=== PATIENT | male | born 1965 | race Caucasian/White ===

== ENCOUNTER 2022-10-03 15:22 | Inpatient (IN) ==
[2022-10-03] MEDS ORDERED: KETAMINE HCL ONE (15:23)
[2022-10-03] MEDS ORDERED: ULTANE GAS IN ONE (15:23)
[2022-10-03] MEDS ORDERED: XYLOCAINE 2 % (PLAIN) ONE (15:23)
[2022-10-03 16:59] LABS: BASOPHILS # (AUTO) 0.1 X10^3/uL (0.0-0.1); BASOPHILS % (AUTO) 0.6 % (0.2-1.0); EOSINOPHILS # (AUTO) 0.4 x10^3/uL (0.0-0.2); HEMATOCRIT 40.9 % (42.0-54.0); LYMPHOCYTES # (AUTO) 3.2 X10^3/uL (1.3-2.9); LYMPHOCYTES % (AUTO) 37.6 % (21.0-51.0); MEAN CORPUSCULAR HEMOGLOBIN 32.9 pg (27.0-34.0); MEAN CORPUSCULAR HGB CONC 34.2 g/dL (33.0-35.0); MEAN CORPUSCULAR VOLUME 96.3 fL (80.0-100.0); MEAN PLATELET VOLUME 7.3 fL (7.4-11.0); MONOCYTES # (AUTO) 0.8 x10^3/uL (0.3-0.8); MONOCYTES % (AUTO) 9.5 % (0.0-13.0); NEUTROPHILS % (AUTO) 47.3 % (42.0-75.0); PLATELET COUNT 207 X10^3/uL (150.0-450.0); RED BLOOD COUNT 4.25 X10^6/uL (4.7-6.0); RED CELL DISTRIBUTION WIDTH 13.3 % (11.6-16.5); WHITE BLOOD COUNT 8.4 X10^3/uL (3.6-10.0)
[2022-10-03 17:10] LABS: ALANINE AMINOTRANSFERASE 26 Units/L (12-78); ALBUMIN 3.7 g/dL (3.4-5.0); ALKALINE PHOSPHATASE 112 Units/L (46-116); ASPARTATE AMINO TRANSFERASE 23 Units/L (15-37); BLOOD UREA NITROGEN 14 mg/dL (7-18); CALCIUM 8.7 mg/dL (8.5-10.1); CARBON DIOXIDE 25.9 mmol/L (21-32); CHLORIDE 99 mmol/L (98-107); CREATININE 1.34 mg/dL (0.70-1.30); GLUCOSE 98 mg/dL (65-99); POTASSIUM 3.9 mmol/L (3.5-5.1); SODIUM 137 mmol/L (136-145); TOTAL PROTEIN 7.9 g/dL (6.4-8.2); eGFR NON BLACK RACES 58 (>60)
[2022-10-03] MEDS ORDERED: OMNIPAQUE 350 mg/mL 50 mL BTL 50 ML ONE (17:17)
[2022-10-03] MEDS ORDERED: OMNIPAQUE 350 mg/mL 100 mL BTL 100 ML ONE (17:17)
[2022-10-03] MEDS: LR 1,000 ML IV 1,000 ML IV SCH (18:17)
[2022-10-03 18:22] VITALS: BMI 34.4
[2022-10-04] MEDS: LR 1,000 ML IV 1,000 ML IV SCH ×2 (05:04→21:33)
[2022-10-04] MEDS: PERCOCET TAB 5/325 MG PO PRN (05:57)
--- NOTE | 2022-10-04 07:59 | CT ---
HISTORYCritical ischemia right lower extremitySTUDYCTA AORTA WITH RUNOFFCOMPARISONNoneTECHNIQUECTA of the abdomen and pelvis with bilateral lower extremity runoff obtained with IV contrast. 3D MIPS images obtained and reviewed. Dose reduction techniques including Automated Exposure Control (AEC) and adjustment of mA and kV were utilized.FINDINGSGround-glass opacities in the right middle lobe and lingula.No acute osseous abnormality. Multilevel degenerative changes in the visualized spine. No acute soft tissue abnormality in either lower extremity.No evidence of aortic aneurysm or dissection. The celiac artery, SMA, bilateral renal arteries, and BROOKE appear patent.The right common and internal iliac arteries appear widely patent. Occlusion of the right external iliac artery. Reconstitution of the right common femoral artery with patency of the common femoral, superficial femoral, and deep femoral arteries with multifocal atherosclerotic disease. The right popliteal artery is patent. The right posterior tibial and peroneal arteries are patent to the right foot with diminutive flow in the proximal right anterior tibial artery and no flow visualized distally.The left common, internal, and external iliac arteries appear widely patent. The left common femoral, superficial femoral, and deep femoral arteries appear widely patent. The left popliteal artery is patent. The left peroneal artery is patent to the foot. The left anterior tibial and posterior tibial arteries are patent proximally with nonvisualization of flow more distally. There is apparent reconstitution of flow at the left posterior tibial artery just above the ankle.The liver, spleen, pancreas, bilateral adrenal glands, and bilateral kidneys demonstrate no acute process. Prior cholecystectomy. Subcentimeter hypoattenuating bilateral renal lesions which are too small to characterize.No evidence of bowel obstruction. The appendix is not visualized and may be surgically absent. Evidence of mesh repair in the midline anterior abdomen.The bladder is unremarkable. No free air or fluid.IMPRESSIONPatent two vessel runoff to the right foot and one-vessel runoff to the left foot.No acute findings in the abdomen or pelvis.Electronically signed by: BELINDA PALACIOS (Oct 04, 2022 07:58:18)
--- NOTE | 2022-10-04 09:08 | DR.H&P ---
H&P History & Physical for Day of: H&P Date: 10/03/22 Chief Complaint Chief Complaint: Severe ischemic rest pain right leg. Allergies Allergies Allergy/AdvReac Type Severity Reaction Status Date / Time No Known Allergies Allergy Verified 10/01/22 09:31 History of Present Illness History of Present Illness: 57 year old male, heavy smoker, who presented originally to my office in June of this year complaining of severe rest pain both legs much worse on the right. The patient has a significant past history of chest pain and shortness of breath and was to be evaluated by Cardiology. He has a history of one coronary This has occurred over a protracted time but he has been cleared for operative intervention of the leg as necessary. No ischemia on stress test but EF =28 % but they questioned whether this might be higher The Details of the cardiac consultation will be placed in the chart. He was in today with severe pain of the right leg which is unrelenting. He's admitted for resolution of this problem. Past Medical History Past Medical History: COPD, Coronary Artery Disease and Hypertension Past Surgical History Surgical History: Angioplasty/Stents and Cholecystectomy Family History Family Medical History: Diabetes Mellitus Social History Does patient currently use any type of tobacco product: Yes Have you used tobacco products in the last 12 months: Yes Type of Tobacco Use: Cigarettes Alcohol Use: None Drug Use: None Medications Home Medications: Albuterol ,Xanax ,atorvastin, carvediol,plavix,cyclobenzaprine, lasix, neurotin,insulin, lisinopril,metformin,percocet,protonix, sitagliptin Labs 10/03/22 16:30 10/03/22 16:30 Labs: Laboratory WBC 8.4 X10^3/uL (3.6-10.0) 10/03/22 16:30 RBC 4.25 X10^6/uL (4.7-6.0) L 10/03/22 16:30 Hgb 14.0 g/dL (13.5-18.0) 10/03/22 16:30 Hct 40.9 % (42.0-54.0) L 10/03/22 16:30 MCV 96.3 fL (80.0-100.0) 10/03/22 16:30 MCH 32.9 pg (27.0-34.0) 10/03/22 16:30 MCHC 34.2 g/dL (33.0-35.0) 10/03/22 16:30 RDW 13.3 % (11.6-16.5) 10/03/22 16:30 Plt Count 207 X10^3/uL (150.0-450.0) 10/03/22 16:30 MPV 7.3 fL (7.4-11.0) L 10/03/22 16:30 Neut % (Auto) 47.3 % (42.0-75.0) 10/03/22 16:30 Lymph % (Auto) 37.6 % (21.0-51.0) 10/03/22 16:30 [place] % (Auto) 9.5 % (0.0-13.0) 10/03/22 16:30 Eos % (Auto) 5.0 % (0.9-2.9) H 10/03/22 16:30 Baso % (Auto) 0.6 % (0.2-1.0) 10/03/22 16:30 Neut # (Auto) 4.0 x10^3/uL (2.2-4.8) 10/03/22 16:30 Lymph # (Auto) 3.2 X10^3/uL (1.3-2.9) H 10/03/22 16:30 [place] # (Auto) 0.8 x10^3/uL (0.3-0.8) 10/03/22 16:30 Eos # (Auto) 0.4 x10^3/uL (0.0-0.2) H 10/03/22 16:30 Baso # (Auto) 0.1 X10^3/uL (0.0-0.1) 10/03/22 16:30 Absolute Nucleated RBC 0.1 /100WBC 10/03/22 16:30 Sodium 137 mmol/L (136-145) 10/03/22 16:30 Corrected Sodium TNP 10/03/22 16:30 Potassium 3.9 mmol/L (3.5-5.1) 10/03/22 16:30 Chloride 99 mmol/L (98-107) 10/03/22 16:30 Carbon Dioxide 25.9 mmol/L (21-32) 10/03/22 16:30 BUN 14 mg/dL (7-18) 10/03/22 16:30 Creatinine 1.34 mg/dL (0.70-1.30) H 10/03/22 16:30 Est GFR (MDRD) Af Amer > 60 (>60) 10/03/22 16:30 Est GFR (MDRD) Non-Af 58 (>60) L 10/03/22 16:30 Glucose 98 mg/dL (65-99) 10/03/22 16:30 POC Glucose (mg/dL) 92 mg/dL (65-99) 10/03/22 19:34 Calcium 8.7 mg/dL (8.5-10.1) 10/03/22 16:30 Corrected Calcium TNP 10/03/22 16:30 Total Bilirubin 0.70 mg/dL (0.2-1.0) 10/03/22 16:30 AST 23 Units/L (15-37) 10/03/22 16:30 ALT 26 Units/L (12-78) 10/03/22 16:30 Alkaline Phosphatase 112 Units/L (46-116) 10/03/22 16:30 Total Protein 7.9 g/dL (6.4-8.2) 10/03/22 16:30 Albumin 3.7 g/dL (3.4-5.0) 10/03/22 16:30 Globulin 4.2 g/dL (2.5-4.5) 10/03/22 16:30 Albumin/Globulin Ratio 0.9 Ratio (1.1-2.1) L 10/03/22 16:30 Review of Systems Constitutional: See HPI Eyes: No Symptoms Reported ENT: No Symptoms Reported Respiratory: No Symptoms Reported Cardiovascular: See HPI Gastrointestinal: No Symptoms Reported Genitourinary: No Symptoms Reported Musculoskeletal: See HPI Skin: No Symptoms Reported Neurological: See HPI Physical Exam Vital Signs: Vital Signs Temperature 97.5 F Temperature 97.9 F Pulse Rate [Right Brachial] 68 Pulse Rate [Right Brachial] 91 Respiratory Rate 18 Respiratory Rate 24 Blood Pressure [Right Arm] 95/50 Blood Pressure [Right Arm] 131/64 O2 Sat by Pulse Oximetry 93 Oriented: Normal, Time, Person and Place Eyes: Normal Ear: Normal Nose: Normal Throat: Normal Respiratory: Clear Throughout Cardiovascular: Normal : Normal Auscultation: Bowel Sounds: Normal Palpation: Normal Tenderness: Normal Skin: Normal Musculoskeletal: Normal Psychiatric: Normal Mood Description: Anxious Affect: Normal Speech Pattern: Clear Assessment/Plan (1) Atherosclerosis of [place] arteries of extremities with rest pain, right leg: Narrative Support Text: plan CTA of aorta with peripheral vs surgical intervention . All other medical problems to be treated with his usual home medications. Status: Acute (2) Atherosclerosis of [place] arteries of extremities with rest pain, left leg: Status: Acute (3) Generalized anxiety disorder: Status: None (4) Mixed hyperlipidemia: Status: None (5) Mild tobacco abuse: Status: None (6) Type 2 diabetes mellitus: Status: None (7) Heart disease: Narrative Support Text: see results of stress test Status: None (8) Essential hypertension: Status: None
[2022-10-04] MEDS ORDERED: DIPRIVAN VIAL 40 ML ONE (13:40)
[2022-10-04] MEDS ORDERED: NS 1,000 ML IV 1,000 ML ONE (13:41)
[2022-10-04] MEDS ORDERED: ANCEF VIAL 1 GRAM ONE (13:41)
[2022-10-04] MEDS ORDERED: NS 100 ML IV 100 ML ONE (13:42)
[2022-10-04] MEDS ORDERED: MARCAINE 0.5% ONE (13:56)
[2022-10-04] MEDS ORDERED: HEPARIN SODIUM IN D5W 75,000 UNITS/1,500 ML BAG ONE (13:57)
[2022-10-04] MEDS ORDERED: VERSED ONE (14:01)
[2022-10-04] MEDS ORDERED: FENTANYL VIAL INJ 100 mcg ONE (14:01)
[2022-10-04] MEDS ORDERED: VISIPAQUE 100 ML ONE (14:17)
[2022-10-04] MEDS ORDERED: HEPARIN SODIUM INJ 5000 UNITS ONE (14:20)
--- NOTE | 2022-10-04 22:57 | OR.IMMED ---
IMMEDIATE POST-OP NOTE Immediate Post-Op Note Pre-Op Diagnosis: critical ischemia right leg Post-Op Diagnosis: same Procedure: diagnostic aortogram, diagnostic arteriogram right leg. Failed to cross right external iliac artery occlusion, failed to cross right superficial femoral artery total occlusion via posterior tibial artery approach Description of Procedure: see dictation Surgeon/Admissions Clerk: Karmen Findings: as above Estimated Blood Loss: 50 cc Complications: none Progress Notes: Return to floor, will need right femoral endarterectomy and approach right iliac artery occlusion and right superficial femoral artery occlusion from the open incision, possible femoral femoral artery bypass.
--- NOTE | 2022-10-05 09:27 | NOTE.SOAP ---
Soap Note Note for Day of Date of Exam: 10/05/22 Subjective Data Subjective Data: POD # 1 Unable to revascularize right leg . c/o rest pain right leg Objective Data Temperature: 98.3 F Pulse Rate: 70 Respiratory Rate: 18 Blood Pressure: 131/79 O2 Sat by Pulse Oximetry: 95 Objective Data: Needle sticks to the left groin and right foot are without bleeding. Complaining of rest pain right leg. Does complained of some claustrophobia but I think his main problem is lack of tobacco. Assessment Assessment: Critical ischemia right leg with occluded right external iliac artery and occluded right superficial femoral artery Plan Plan: For now pain control. Will schedule operative intervention on October 07 to include probable right femoral endarterectomy with approach of the right external iliac artery for stenting and approach of the right superficial femoral artery for atherectomy and angioplasty. He may require a femoral femoral bypass if I am unable to open up the right iliac artery. Begin all home meds. Start Nicotine patch. D/C Keven.
[2022-10-05] MEDS ORDERED: NovoLIN R (or HumuLIN R) SC PRN (10:28)
[2022-10-05] MEDS ORDERED: VENTOLIN or PROAIR HFA IN PRN (10:38)
[2022-10-05] MEDS: COREG TAB 12.5 MG PO SCH ×2 (11:21→20:42)
[2022-10-05] MEDS: NEURONTIN CAP 100 MG PO SCH (11:21)
[2022-10-05] MEDS: PLAVIX PO SCH (11:21)
[2022-10-05] MEDS: PROTONIX TAB 40 MG PO SCH (11:21)
[2022-10-05] MEDS: ASPIRIN EC 81 MG PO SCH (11:22)
[2022-10-05] MEDS: LR 1,000 ML IV 1,000 ML IV SCH ×3 (11:22→20:42)
[2022-10-05] MEDS: NICOTINE PATCH TD SCH (11:22)
[2022-10-05] MEDS: ZESTRIL TAB 10 MG PO SCH ×3 (11:22→20:43)
--- NOTE | 2022-10-05 12:28 | DR.OPNOTE ---
OP NOTE Pre-Op Diagnosis: Critical ischemia right leg Post-Op Diagnosis: same Procedure Date Date Of Procedure: 10/04/22 Procedure: PROCEDURE: DIAGNOSTIC AORTOGRAM, DIAGNOSTIC ARTERIOGRAM RIGHT LEG NARRATIVE : The patient was taken to the operative suite and placed in the supine position. The left groin and entire right leg were prepped and draped in sterile fashion. The patient was given intravenous sedation supervised by myself. Time out for the procedure obtained. Ultrasound used to identify the left femoral artery and the skin overlying it infiltrated with 0.5% Marcaine. Ultrasound then used to guide puncture of the left femoral artery and a 0.012 inch guide wire was placed. Incision made over the guide wire at the skin edge with a # 11 knife blade and a micro sheath placed over the guide wire into the left femoral artery The small guidewire exchanged for a 0.035 inch Advantage glide wire and the micro sheath exchanged for a 5 Fr vascular sheath. Patient given 5000 units of intravenous heparin. Omni catheter was placed over the guide wire into the aorta and diagnostic aortogram carried out with the power injector showing diseased , but patent distal aorta with small, < 3.5 cm abdominal aortic aneurysm. Right external iliac artery was occluded at it's takeoff with occluded proximal right common femoral artery and reconstitution of the right superficial femoral artery and profunda artery. Omni catheter was used to attempt to steer the guide wire down the right common iliac artery to the distal right external iliac artery but this was unsuccessful . Omni catheter was exchanged for a [place] catheter and again we failed to get the wire beyond the takeoff of the occluded right external iliac artery at it's takeoff from the right common femoral artery. At this point we elected to try to access this distally from the right posterior tibial artery. Ultrasound used to identify the right posterior tibial artery at the ankle and the skin overlying it infiltrated with 0.5% Marcaine . Right posterior tibial artery punctured using ultrasound guidance and a 0.012 inch guide wire placed . Incision made over the guide wire and a micro sheath placed over this into the artery. Arteriogram confirmed that we were indeed in the right posterior tibial artery. There was three vessel run off of the right leg. The popliteal artery was occluded from just below the knee joint proximally. Over the wire we exchanged the micro sheath for a 7 Italian slim vascular sheath sheath and used a 0.035 inch wire to get beyond the popliteal occlusion. We got the wire into the right superficial femoral artery but there was an occluded stent which we could not get beyond. As above it should be noted that the proximal superficial femoral artery was patent. At this point we will need to do a different approach as there been two failed peripheral intervention attempts to repair this problem. Patient will be taken to the floor and we will plan a right femoral endarterectomy this week and hopefully at that time through the patch we place we can access the occluded right external iliac artery and right superficial artery and stent the iliac artery and perform atherectomy, possible angioplasty, possible stenting of the right superficial femoral artery. If we cannot get away across the occluded iliac artery the patient will require a femoral femoral bypass with an attempt to go through the patch and open up the right superficial femoral artery. This will be a complicated procedure. All wires and devices removed. The 5 Fr sheath in the left groin had a 0.035 inch wire placed. The 5 Fr sheath exchanged for an Angioseal device used to close the puncture of the left femoral artery. The sheath in the right posterior tibial artery was removed after placing a tibial band over the puncture site and inflating it. There was no additional bleeding. Dressing applied to the left groin. The patient taken to same day surgery in good condition. Type of Anesthesia: Local (0.5% Marcaine) Anesthesia Comment: plus MAC Findings: Completely occluded right external iliac artery, completely occluded right common femoral artery, complete occlusion of the mid and distal right superficial femoral artery, three vessel runoff right leg Type of Fluids Used:: Lactated Ringers Total Amount of Fluid Infused:: 400 cc Urine output: 150 cc EBL: 50 cc Complications:: none Needle/Sponge Count:: correct Disposition/Condition: Pt. tolerated procedure without difficulty. Taken to floor in stable condition.
[2022-10-05] MEDS: PERCOCET TAB 5/325 MG PO PRN ×2 (16:28→22:08)
[2022-10-05] MEDS: LIPITOR TAB 40 MG PO SCH (20:42)
[2022-10-05] MEDS: XANAX PO PRN (22:07)
[2022-10-05] MEDS: FLEXERIL TAB 10 MG PO PRN (22:08)
[2022-10-06] MEDS: LR 1,000 ML IV 1,000 ML IV SCH ×5 (03:14→23:56)
[2022-10-06] MEDS: NEURONTIN CAP 100 MG PO SCH (09:20)
[2022-10-06] MEDS: ASPIRIN EC 81 MG PO SCH (09:20)
[2022-10-06] MEDS: PROTONIX TAB 40 MG PO SCH (09:20)
[2022-10-06] MEDS: PLAVIX PO SCH (09:20)
[2022-10-06] MEDS: ZESTRIL TAB 10 MG PO SCH ×2 (09:20→21:28)
[2022-10-06] MEDS: LASIX PO SCH (09:21)
[2022-10-06] MEDS: COREG TAB 12.5 MG PO SCH ×2 (09:21→21:29)
[2022-10-06] MEDS: NICOTINE PATCH TD SCH (09:21)
[2022-10-06] MEDS: XANAX PO PRN (10:05)
[2022-10-06] MEDS: FLEXERIL TAB 10 MG PO PRN (10:06)
[2022-10-06] MEDS: PERCOCET TAB 5/325 MG PO PRN ×2 (10:07→21:30)
--- NOTE | 2022-10-06 19:01 | NOTE.SOAP ---
Soap Note Note for Day of Date of Exam: 10/06/22 Subjective Data Subjective Data: The patient feels better. He has a much better attitude today. Still complaining of significant pain however of the right leg and foot at rest Objective Data Temperature: 97.8 F Pulse Rate: 72 Respiratory Rate: 20 Blood Pressure: 109/62 O2 Sat by Pulse Oximetry: 94 Objective Data: No palpable pulse right groin . Needle sticks left groin and right ankle are healing without bleeding. Will check labs in AM. Assessment Assessment: Critical ischemia right leg. Plan Plan: Two experienced physicians have now been unable to cross the occlusion of the right external iliac artery. In addition, I could not cross the occlusion of the right superficial femoral artery stents. Tomorrow we plan endarterectomy of the completely occluded right common femoral artery with patch placement. Plan is to then try to get a wire up the iliac artery and down the superficial femoral artery to perform stenting of the iliac artery and atherectomy and drug coated balloon angioplasty of the right superficial femoral artery. If I am unsuccessful in opening up the right iliac artery the patient will require a femoral femoral bypass. His leg is at extreme jeopardy for loss. He understands this. He agreed to proceed.
[2022-10-06] MEDS: LIPITOR TAB 40 MG PO SCH (21:29)
[2022-10-07] MEDS: LR 1,000 ML IV 1,000 ML IV SCH ×2 (05:18→15:58)
[2022-10-07 06:03] LABS: BASOPHILS % (AUTO) 0.7 % (0.2-1.0); EOSINOPHILS # (AUTO) 0.2 x10^3/uL (0.0-0.2); EOSINOPHILS % (AUTO) 4.7 % (0.9-2.9); HEMATOCRIT 37.1 % (42.0-54.0); HEMOGLOBIN 12.6 g/dL (13.5-18.0); LYMPHOCYTES # (AUTO) 1.6 X10^3/uL (1.3-2.9); LYMPHOCYTES % (AUTO) 31.5 % (21.0-51.0); MEAN CORPUSCULAR HEMOGLOBIN 32.7 pg (27.0-34.0); MEAN CORPUSCULAR HGB CONC 33.9 g/dL (33.0-35.0); MEAN CORPUSCULAR VOLUME 96.2 fL (80.0-100.0); MEAN PLATELET VOLUME 7.4 fL (7.4-11.0); MONOCYTES # (AUTO) 0.4 x10^3/uL (0.3-0.8); MONOCYTES % (AUTO) 7.5 % (0.0-13.0); NEUTROPHILS # (AUTO) 2.8 x10^3/uL (2.2-4.8); NEUTROPHILS % (AUTO) 55.6 % (42.0-75.0); PLATELET COUNT 185 X10^3/uL (150.0-450.0); RED BLOOD COUNT 3.86 X10^6/uL (4.7-6.0); RED CELL DISTRIBUTION WIDTH 13.8 % (11.6-16.5); WHITE BLOOD COUNT 5.1 X10^3/uL (3.6-10.0)
[2022-10-07 06:08] LABS: BLOOD UREA NITROGEN 6 mg/dL (7-18); CALCIUM 8.2 mg/dL (8.5-10.1); CARBON DIOXIDE 28.1 mmol/L (21-32); CHLORIDE 104 mmol/L (98-107); CREATININE 0.87 mg/dL (0.70-1.30); GLUCOSE 105 mg/dL (65-99); POTASSIUM 3.5 mmol/L (3.5-5.1); SODIUM 141 mmol/L (136-145); eGFR NON BLACK RACES > 60 (>60)
[2022-10-07] MEDS ORDERED: CONSULT PHARMACY - POTASSIUM & MAGNESIUM XX SCH (07:00)
[2022-10-07] MEDS ORDERED: K-DUR TAB 20 MEQ PO SCH (08:00)
[2022-10-07] MEDS: NICOTINE PATCH TD SCH (08:28)
[2022-10-07] MEDS ORDERED: K-RIDER 10 MEQ/NS 100 ML 20 MEQ/200 ML BAG IV ONE (09:00)
[2022-10-07] MEDS ORDERED: NS 500 ML IV 500 ML IV ONE (09:04)
[2022-10-07] MEDS ORDERED: NS 1,000 ML IV 1,000 ML ONE ×3 (10:16→14:58)
[2022-10-07] MEDS ORDERED: ANCEF VIAL 1 GRAM ONE (10:16)
[2022-10-07] MEDS ORDERED: NS 100 ML IV 100 ML ONE ×2 (10:17→11:45)
[2022-10-07] MEDS ORDERED: NEO-SYNEPHRINE INJ ONE (10:46)
[2022-10-07] MEDS ORDERED: EPHEDRINE SULFATE INJ ONE (10:46)
[2022-10-07] MEDS ORDERED: OFIRMEV IV 1000 MG VIAL 1,000 MG/100 ML VIAL IV ONE (10:46)
[2022-10-07] MEDS ORDERED: ZOFRAN INJ 4 MG VIAL ONE ×2 (10:46→15:57)
[2022-10-07] MEDS ORDERED: AMIDATE INJ 40 MG VIAL ONE (10:46)
[2022-10-07] MEDS ORDERED: HEPARIN SODIUM INJ 5000 UNITS ONE ×3 (10:46→15:10)
[2022-10-07] MEDS ORDERED: BRIDION ONE (10:46)
[2022-10-07] MEDS ORDERED: PEPCID 20 MG VIAL ONE (10:46)
[2022-10-07] MEDS ORDERED: ZEMURON 100 MG VIAL ONE ×2 (10:46→14:52)
[2022-10-07] MEDS ORDERED: FENTANYL VIAL INJ 250 mcg ONE ×2 (10:49→13:33)
[2022-10-07] MEDS ORDERED: ROBINUL ONE (10:50)
[2022-10-07] MEDS ORDERED: VERSED ONE (11:21)
[2022-10-07] MEDS ORDERED: HEPARIN SODIUM IN D5W 75,000 UNITS/1,500 ML BAG ONE (11:42)
[2022-10-07] MEDS ORDERED: MARCAINE 0.5% ONE (11:42)
[2022-10-07] MEDS ORDERED: HESPAN IV IN NS 500 ML IV ONE (11:44)
--- NOTE | 2022-10-07 11:51 | RAD ---
HISTORYPreopSTUDYAP chestCOMPARISONJuly 2022FINDINGSBorderline cardiomegaly with clear lungs and pleural spaces. There is no evidence for CHF or pneumonia.IMPRESSIONNo change or acute findings.Electronically signed by: ELIE CRENSHAW (Oct 07, 2022 11:50:37)
[2022-10-07] MEDS ORDERED: BREVIBLOC ONE (12:15)
[2022-10-07] MEDS ORDERED: DECADRON INJ ONE (12:35)
[2022-10-07] MEDS ORDERED: VISIPAQUE 100 ML ONE (13:59)
[2022-10-07] MEDS ORDERED: VISIPAQUE 50 ML ONE (14:15)
[2022-10-07] MEDS ORDERED: PROTAMINE SULFATE 50 MG VIAL ONE (15:35)
[2022-10-07] MEDS: ZESTRIL TAB 10 MG PO SCH ×2 (15:56→20:45)
[2022-10-07] MEDS: ASPIRIN EC 81 MG PO SCH (15:56)
[2022-10-07] MEDS: PLAVIX PO SCH (15:56)
[2022-10-07] MEDS: NEURONTIN CAP 100 MG PO SCH (15:57)
[2022-10-07] MEDS: LASIX PO SCH (15:57)
[2022-10-07] MEDS: COREG TAB 12.5 MG PO SCH ×2 (15:58→20:45)
[2022-10-07] MEDS: PROTONIX TAB 40 MG PO SCH (15:58)
[2022-10-07] MEDS ORDERED: DILAUDID INJ IVP PRN ×2 (16:03→16:07)
[2022-10-07] MEDS ORDERED: BENADRYL INJ 50 MG VIAL IVP PRN (16:07)
[2022-10-07] MEDS ORDERED: ZOFRAN INJ 4 MG VIAL IVP PRN (16:07)
[2022-10-07] MEDS ORDERED: REGLAN INJ 10 MG VIAL IVP PRN (16:07)
[2022-10-07] MEDS ORDERED: BARHEMSYS INJ IVP PRN (16:07)
--- NOTE | 2022-10-07 16:12 | OR.IMMED ---
IMMEDIATE POST-OP NOTE Immediate Post-Op Note Pre-Op Diagnosis: critical ischemia right leg Post-Op Diagnosis: same Procedure: Right femoral endarterectomy with patch angioplasty, stenting right external iliac artery , stenting entire right superficial femoral artery Description of Procedure: dictated Surgeon/Lead Systems Architect: brock Findings: completely occluded right external iliac artery, completely occluded right common femoral artery, completely occluded right superficial femoral artery Estimated Blood Loss: 900 cc Complications: none Progress Notes: Patietn extubated and taken to the recovery room. Plan stat CBC. Return to the floor when ready.
[2022-10-07 16:19] LABS: BASOPHILS % (AUTO) 0.4 % (0.2-1.0); EOSINOPHILS # (AUTO) 0.1 x10^3/uL (0.0-0.2); EOSINOPHILS % (AUTO) 1.4 % (0.9-2.9); HEMATOCRIT 31.6 % (42.0-54.0); HEMOGLOBIN 10.8 g/dL (13.5-18.0); LYMPHOCYTES % (AUTO) 15.1 % (21.0-51.0); MEAN CORPUSCULAR HEMOGLOBIN 33.1 pg (27.0-34.0); MEAN CORPUSCULAR HGB CONC 34.2 g/dL (33.0-35.0); MEAN CORPUSCULAR VOLUME 96.6 fL (80.0-100.0); MEAN PLATELET VOLUME 7.1 fL (7.4-11.0); MONOCYTES # (AUTO) 0.1 x10^3/uL (0.3-0.8); MONOCYTES % (AUTO) 1.5 % (0.0-13.0); NEUTROPHILS # (AUTO) 5.4 x10^3/uL (2.2-4.8); NEUTROPHILS % (AUTO) 81.6 % (42.0-75.0); PLATELET COUNT 168 X10^3/uL (150.0-450.0); RED BLOOD COUNT 3.27 X10^6/uL (4.7-6.0); RED CELL DISTRIBUTION WIDTH 13.5 % (11.6-16.5); WHITE BLOOD COUNT 6.6 X10^3/uL (3.6-10.0)
[2022-10-07] MEDS: LIPITOR TAB 40 MG PO SCH (20:45)
[2022-10-07] MEDS: PERCOCET TAB 5/325 MG PO PRN (21:14)
[2022-10-08 04:48] VITALS: RESP 18
[2022-10-08] MEDS: LR 1,000 ML IV 1,000 ML IV SCH ×3 (05:31→15:24)
[2022-10-08] MEDS: NEURONTIN CAP 100 MG PO SCH (08:04)
[2022-10-08] MEDS: ZESTRIL TAB 10 MG PO SCH ×2 (08:04→20:30)
[2022-10-08] MEDS: ASPIRIN EC 81 MG PO SCH (08:04)
[2022-10-08] MEDS: PLAVIX PO SCH (08:04)
[2022-10-08] MEDS: LASIX PO SCH (08:04)
[2022-10-08] MEDS: PROTONIX TAB 40 MG PO SCH (08:04)
[2022-10-08] MEDS: COREG TAB 12.5 MG PO SCH ×2 (08:04→20:30)
[2022-10-08] MEDS: XANAX PO PRN (08:12)
[2022-10-08] MEDS: FLEXERIL TAB 10 MG PO PRN (08:12)
[2022-10-08] MEDS: PERCOCET TAB 5/325 MG PO PRN ×2 (08:13→20:46)
[2022-10-08] MEDS: NICOTINE PATCH TD SCH (08:14)
--- NOTE | 2022-10-08 18:03 | NOTE.SOAP ---
Soap Note Note for Day of Date of Exam: 10/08/22 Subjective Data Subjective Data: POD # 1 after right femoral endarterectomy and patch , stenting right external iliac artery, atherectomy and drug coated balloon angioplasty of the right superficial femoral artery. Has done well. .Pain under control,and has been out of bed ambulating. Still with Baca catheter in place. Objective Data Temperature: 98.0 F Pulse Rate: 99 Respiratory Rate: 18 Blood Pressure: 107/59 O2 Sat by Pulse Oximetry: 95 Objective Data: As above. Wound right groin intact with no significant drainage. Hgb=10.8, creatinine=0.87, lungs are clear Assessment Assessment: Critical ischemia right leg , now resolved . Plan Plan: D/C home tomorrow . Will f/u in 1 week. At that time will schedule for intervention of critical ischemia left leg as an outpatient.
[2022-10-08] MEDS: LIPITOR TAB 40 MG PO SCH (20:30)
--- NOTE | 2022-10-08 22:21 | DR.OPNOTE ---
OP NOTE Pre-Op Diagnosis: Critical limb threatening ischemia right leg Post-Op Diagnosis: same Procedure Date Date Of Procedure: 10/07/22 Procedure: PROCEDURE: Right common femoral endarterectomy, diagnostic aortogram , diagnostic arteriogram right leg, stenting right external iliac artery, stenting right superficial femoral artery using three stents NARRATIVE : The patient was taken to the operative suite and placed in the supine position. General endotracheal anesthesia induced. The lower abdomen, entire right leg and left groin were prepped and draped in sterile fashion. Time out for the procedure obtained . Linear incision made in the right groin with a number 15 knife blade and dissection carried down with electrocautery finding the right femoral artery. Sharp dissection used to completely delineate the femoral artery. Vessel loops were placed proximally at the junction of the common femoral artery and distal external iliac artery at a soft spot, around the profunda femoris artery and around the superficial femoral artery at a soft spot below the dense plaque in the common femoral artery. The proximal external iliac artery was clamped and the other vessels controlled with the vessel loops. The common femoral artery opened with a # 11 knife blade and Pott's scissors and [place] dissector used to perform endarterectomy. All plaque removed. All floating material removed. The external iliac artery proximal to the arteriotomy was open but was occluded proximal to this as I could not pass a [place] catheter through it. The superficial femoral artery distal to the endpoint of the arteriotomy was occluded . The arteriotomy was closed using a 8mm x 8 cm long pericardial patch. This was sewn into position with a running 5-0 Prolene suture and clamp removed. There was minimal bleeding with only one area requiring a figure of 8 suture. The bleeding was back flow through the superficial artery as the external iliac artery remained occluded. The patch was punctured with a 16 gauge needle and a 0.014 inch guide wire placed proximally. Over the wire we placed a micro sheath . The small wire removed and exchanged for a 0.035 inch Advantage glide wire with was used to traverse the entire occlusion of the right external iliac artery into the aorta. Micro sheath exchanged for a 7 Fr vascular sheath . Omni catheter placed over the guide wire into the aorta and diagnostic aortogram confirmed that we were indeed in the aorta with the occlusion of the external iliac artery on the right side marked. Omni catheter removed and over the wire we placed an Jacinda drug coated 7 mm by 120 mm stent and deployed it over the external iliac occlusion and then balloon dilated it with a 7 mm [place] balloon. Arteriogram confirmed good flow through the right iliac artery. Sheath removed from the patch and the puncture site closed with a purse string 6-0 Prolene suture while the artery was clamped. At this point the patch was punctured aiming caudad and a 0.014 inch wire placed initially in the profunda artery . It was backed up and placed in the superficial femoral artery. Micro sheath placed over the glide wire into the superficial femoral artery and we exchanged the small wire for a 0.035 inch Advantage glide wire and used it to traverse the entire occlusion of the superficial femoral artery including the mid portion occluded stent and proximal popliteal artery into the peroneal artery. Arteriogram had been used showing two vessel runoff via the posterior tibial and peroneal arteries . Because the occlusion was extensive and calcified we elected to stent the entire superficial femoral artery. 6 mm by 150 mm drug coated Jacinda stents x 2 placed end to end extending from the proximal popliteal artery into the superficial femoral artery. Finally a 6 mm by 60 mm [place] drug coated stent was placed extending it all the way through the area of occlusion. These stents were then balloon dilated with a 6 mm [place] balloon. Arteriogram showed excellent results with good flow through the right iliac artery all the way down the right leg. The sheath removed from the patch and the artery clamped. The puncture site of the patch closed with a purse string suture of 6-0 Prolene . The patient had been given 5000 units of heparin at the beginning of the case. An additional 3000 minutes have been dosed at 1 hour and another 3000 given at the second hour. The incision in the right groin was irrigated with saline. Surgicel was placed over the patch. There was no active bleeding. The groin incision closed with two layers of running 0 vicryl suture and the skin closed with skin Kilo. Dressing applied and the patient taken to PACU after extubation . The patient had an excellent biphasic Doppler signal in the right posterior tibial artery. Type of Anesthesia: General Anesthetic w/ETT Anesthesia Comment: extubated without difficulty and taken to PACU Findings: completely occluded right external iliac artery, completely occluded right common femoral artery, completely occluded right superficial femoral artery , 2 vessel runoff right leg via right posterior tibial artery and peron eal artery, right anterior tibial artery is occluded. Type of Fluids Used:: Lactated Ringers Total Amount of Fluid Infused:: 2500 cc Urine output: 575 cc EBL: 900cc Hardware: Jacinda 7mm x 120 mm stent right external iliac artery, Jacinda 6 mmx 150 mm stent x 2 right SFA and Jacinda 6x 60 mm stent right SFA Complications:: none Needle/Sponge Count:: correct Disposition/Condition: Pt. tolerated procedure without difficulty. Extubated in the OR and taken to PACU in stable condition.
[2022-10-09 00:12] VITALS: O2SAT 94
[2022-10-09 04:23] VITALS: BP 120/57; PULSE 85; TEMP 98
--- NOTE | 2022-10-10 12:06 | W.DIS.FURT ---
Summary of Discharge Discharge Summary of Date Date of Exam: 10/09/22 Admission Date Date of Admission: 10/03/22 Admission Diagnosis Hospital Course: This 57 year old male was seen by me originally in June of this year. He had severe rest pain in the right leg as well as rest pain to a lesser extent of the left leg. 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 After a protracted time he had a stress test which showed no reversible ischemia. He continued to have severe pain which worsened and for this reason was admitted on October 03 2022. He was taken to the operating Suite the next day where he underwent aortogram via a left femoral artery puncture and we were unable to get a wire across the occluded right external iliac artery. We attempted to get across the right superficial femoral artery occlusion and the external iliac artery from a posterior tibial artery puncture but this was also unsuccessful. 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 We elected to stop this procedure with plan for open operative intervention. He was returned to the operating Suite on October 07 where he underwent open right femoral endarterectomy and patch angioplasty. Through a puncture in the patch we were able to stent the right external iliac artery and through a separate puncture of the patch we performed atherectomy and drug- coated stenting of the entire right superficial femoral artery restoring blood flow to the right leg. He has done well complaining only up some incisional tenderness in the right groin. He was discharged home today on October 09 2022. He will be sent home on his usual medications to include aspirin 81 mg by mouth daily as well as Plavix, 75 mg daily. He will follow up with me in one week. At that time we will see him and plan intervention of the left leg superficial femoral artery occlusion. Vital Signs: Vital Signs (72 hours) 10/08/22 17:58 10/07/22 00:00 10/07/22 04:00 Temperature 98.0 F 97.5 F L 97.9 F Pulse Rate 99 H Pulse Rate [Right Brachial] 82 83 Respiratory Rate 18 21 20 Blood Pressure 107/59 Blood Pressure [Right Arm] 133/67 148/72 O2 Sat by Pulse Oximetry 95 97 97 Oxygen Delivery Method Room Air Room Air 10/07/22 07:00 10/07/22 10:46 10/07/22 08:00 Temperature 98.0 F 98.0 F Pulse Rate 72 Pulse Rate [Right Brachial] 75 Respiratory Rate 16 20 Blood Pressure 158/70 Blood Pressure [Right Arm] 157/72 O2 Sat by Pulse Oximetry 98 96 Oxygen Delivery Method Room Air Room Air Room Air 10/07/22 15:59 10/07/22 16:04 10/07/22 16:09 Temperature 98.1 F 98.1 F 98.1 F Pulse Rate 115 H 111 H 108 H Pulse Rate [Right Brachial] Respiratory Rate 20 20 18 Blood Pressure 131/67 124/66 122/62 Blood Pressure [Right Arm] O2 Sat by Pulse Oximetry 98 96 99 Oxygen Delivery Method Aerosol Face Tent Aerosol Face Tent Aerosol Face Tent 10/07/22 16:14 10/07/22 16:19 10/07/22 16:24 Temperature 98.1 F 98.1 F 98.1 F Pulse Rate 108 H 106 H 104 H Pulse Rate [Right Brachial] Respiratory Rate 18 16 16 Blood Pressure 122/60 120/60 123/59 Blood Pressure [Right Arm] O2 Sat by Pulse Oximetry 97 97 96 Oxygen Delivery Method Aerosol Face Tent Nasal Cannula Nasal Cannula 10/07/22 16:29 10/07/22 16:45 10/07/22 17:00 Temperature 98.1 F 97.8 F 97.8 F Pulse Rate 101 H Pulse Rate [Right Brachial] 101 H 96 H Respiratory Rate 16 14 16 Blood Pressure 121/61 Blood Pressure [Right Arm] 128/74 133/66 O2 Sat by Pulse Oximetry 95 97 97 Oxygen Delivery Method Nasal Cannula Room Air Room Air 10/07/22 17:15 10/07/22 17:30 10/07/22 17:45 Temperature 98.4 F 98.4 F 97.8 F Pulse Rate Pulse Rate [Right Brachial] 93 H 96 H 97 H Respiratory Rate 16 16 18 Blood Pressure Blood Pressure [Right Arm] 128/69 129/71 131/71 O2 Sat by Pulse Oximetry 99 100 98 Oxygen Delivery Method Room Air Room Air Room Air 10/07/22 21:14 10/07/22 19:00 10/07/22 20:00 Temperature 98.1 F Pulse Rate Pulse Rate [Right Brachial] 102 H Respiratory Rate 18 18 Blood Pressure Blood Pressure [Right Arm] 115/74 O2 Sat by Pulse Oximetry 98 Oxygen Delivery Method Room Air Room Air 10/07/22 22:14 10/07/22 23:55 10/07/22 18:45 Temperature 97.9 F 97.7 F Pulse Rate Pulse Rate [Right Brachial] 93 H 96 H Respiratory Rate 18 21 18 Blood Pressure Blood Pressure [Right Arm] 134/81 129/73 O2 Sat by Pulse Oximetry 96 98 Oxygen Delivery Method Room Air Room Air 10/07/22 19:45 10/07/22 20:45 10/07/22 21:45 Temperature 97.9 F 98.1 F 97.9 F Pulse Rate Pulse Rate [Right Brachial] 104 H 102 H 93 H Respiratory Rate 18 18 21 Blood Pressure Blood Pressure [Right Arm] 139/75 115/74 134/81 O2 Sat by Pulse Oximetry 98 98 95 Oxygen Delivery Method Room Air Room Air Room Air 10/08/22 04:00 10/08/22 08:13 10/08/22 07:00 Temperature 97.7 F Pulse Rate Pulse Rate [Right Brachial] 79 Respiratory Rate 18 18 Blood Pressure Blood Pressure [Right Arm] 113/61 O2 Sat by Pulse Oximetry 92 L Oxygen Delivery Method Room Air Room Air 10/08/22 08:00 10/08/22 12:00 10/08/22 09:13 Temperature 98.4 F 97.9 F Pulse Rate Pulse Rate [Right Brachial] 91 H 82 Respiratory Rate 18 18 20 Blood Pressure Blood Pressure [Right Arm] 139/66 113/56 O2 Sat by Pulse Oximetry 97 95 Oxygen Delivery Method Room Air Room Air 10/08/22 16:00 10/08/22 20:10 10/08/22 20:46 Temperature 98.0 F Pulse Rate 64 Pulse Rate [Right Brachial] 99 H Respiratory Rate 18 18 Blood Pressure Blood Pressure [Right Arm] 107/59 O2 Sat by Pulse Oximetry 95 93 L Oxygen Delivery Method Room Air 10/08/22 19:00 10/08/22 20:00 10/08/22 21:46 Temperature 98.4 F Pulse Rate Pulse Rate [Right Brachial] 93 H Respiratory Rate 18 18 Blood Pressure Blood Pressure [Right Arm] 115/67 O2 Sat by Pulse Oximetry 98 Oxygen Delivery Method Room Air Room Air 10/09/22 00:00 10/09/22 04:00 10/09/22 07:00 Temperature 98.4 F 98 F Pulse Rate Pulse Rate [Right Brachial] 88 85 Respiratory Rate 18 18 Blood Pressure Blood Pressure [Right Arm] 104/50 120/57 O2 Sat by Pulse Oximetry 94 L 94 L Oxygen Delivery Method Room Air Room Air Room Air Labs: Laboratory Last Values WBC 6.6 X10^3/uL (3.6-10.0) 10/07/22 16:12 RBC 3.27 X10^6/uL (4.7-6.0) L 10/07/22 16:12 Hgb 10.8 g/dL (13.5-18.0) L 10/07/22 16:12 Hct 31.6 % (42.0-54.0) L 10/07/22 16:12 MCV 96.6 fL (80.0-100.0) 10/07/22 16:12 MCH 33.1 pg (27.0-34.0) 10/07/22 16:12 MCHC 34.2 g/dL (33.0-35.0) 10/07/22 16:12 RDW 13.5 % (11.6-16.5) 10/07/22 16:12 Plt Count 168 X10^3/uL (150.0-450.0) 10/07/22 16:12 MPV 7.1 fL (7.4-11.0) L 10/07/22 16:12 Neut % (Auto) 81.6 % (42.0-75.0) H 10/07/22 16:12 Lymph % (Auto) 15.1 % (21.0-51.0) L 10/07/22 16:12 [place] % (Auto) 1.5 % (0.0-13.0) 10/07/22 16:12 Eos % (Auto) 1.4 % (0.9-2.9) 10/07/22 16:12 Baso % (Auto) 0.4 % (0.2-1.0) 10/07/22 16:12 Neut # (Auto) 5.4 x10^3/uL (2.2-4.8) H 10/07/22 16:12 Lymph # (Auto) 1.0 X10^3/uL (1.3-2.9) L 10/07/22 16:12 [place] # (Auto) 0.1 x10^3/uL (0.3-0.8) L 10/07/22 16:12 Eos # (Auto) 0.1 x10^3/uL (0.0-0.2) 10/07/22 16:12 Baso # (Auto) 0.0 X10^3/uL (0.0-0.1) 10/07/22 16:12 Absolute Nucleated RBC 0.0 /100WBC 10/07/22 16:12 Sodium 141 mmol/L (136-145) 10/07/22 05:30 Corrected Sodium TNP 10/07/22 05:30 Potassium 3.5 mmol/L (3.5-5.1) 10/07/22 05:30 Chloride 104 mmol/L (98-107) 10/07/22 05:30 Carbon Dioxide 28.1 mmol/L (21-32) 10/07/22 05:30 BUN 6 mg/dL (7-18) L 10/07/22 05:30 Creatinine 0.87 mg/dL (0.70-1.30) 10/07/22 05:30 Est GFR (MDRD) Af Amer > 60 (>60) 10/07/22 05:30 Est GFR (MDRD) Non-Af > 60 (>60) 10/07/22 05:30 Glucose 105 mg/dL (65-99) H 10/07/22 05:30 POC Glucose (mg/dL) 112 mg/dL (65-99) H 10/09/22 05:21 Calcium 8.2 mg/dL (8.5-10.1) L 10/07/22 05:30 Corrected Calcium TNP 10/03/22 16:30 Total Bilirubin 0.70 mg/dL (0.2-1.0) 10/03/22 16:30 AST 23 Units/L (15-37) 10/03/22 16:30 ALT 26 Units/L (12-78) 10/03/22 16:30 Alkaline Phosphatase 112 Units/L (46-116) 10/03/22 16:30 Total Protein 7.9 g/dL (6.4-8.2) 10/03/22 16:30 Albumin 3.7 g/dL (3.4-5.0) 10/03/22 16:30 Globulin 4.2 g/dL (2.5-4.5) 10/03/22 16:30 Albumin/Globulin Ratio 0.9 Ratio (1.1-2.1) L 10/03/22 16:30 Blood Type O POSITIVE 10/05/22 12:53 Antibody Screen Negative 10/05/22 12:53 Crossmatch See Detail 10/05/22 12:53 Reason For Visit: CRITICAL ISCHEMIA RIGHT LOWER EXTREMITY Discharge Date Discharge Date: 10/09/22 Discharge Diagnosis All Active Problems (Updated 10/04/22 @ 09:05 by Raphael Peraza) Atherosclerosis of [place] arteries of extremities with rest pain, left leg (Acute) Atherosclerosis of [place] arteries of extremities with rest pain, right leg (Acute) Abnormal stress test (Acute) Rash (Acute) Plan of Treatment: Continue with present treatment and follow up plan. Pt is to keep follow up appointment as instructed and take medications as ordered. Discharge Medications Discharge Medications: No Known Allergies Allergy (Verified 10/01/22 09:31) CONTINUE taking the following medications atorvastatin 40 mg tablet 40 mg PO HS 10/04/22 [History] sitagliptin phosphate 100 mg tablet (Januvia) 100 mg PO QDAY 10/04/22 [History] carvedilol 12.5 mg tablet 12.5 mg PO DAILY 10/05/22 [History] lisinopril 10 mg tablet 10 mg PO DAILY 10/05/22 [History] aspirin 81 mg po q day Plavix, 75 mg po q day albuterol inhaler q day Xanax .5 mg po TID cyclobenzaprine 10 mg po BID PRN Lasix 40 mg pu daily Gabepentin 100 mg q day Metformin 1000 mg po BID Protonix 40 mg po q day Discharge Disposition Assessment: see hospital course Discharge Plan Discharge Plan Hospital Course: This 57 year old male was seen by me originally in June of this year. He had severe rest pain in the right leg as well as rest pain to a lesser extent of the left leg. 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 After a protracted time he had a stress test which showed no reversible ischemia. He continued to have severe pain which worsened and for this reason was admitted on October 03 2022. He was taken to the operating Suite the next day where he underwent aortogram via a left femoral artery puncture and we were unable to get a wire across the occluded right external iliac artery. We attempted to get across the right superficial femoral artery occlusion and the external iliac artery from a posterior tibial artery puncture but this was also unsuccessful. 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 We elected to stop this procedure with plan for open operative intervention. He was returned to the operating Suite on October 07 where he underwent open right femoral endarterectomy and patch angioplasty. Through a puncture in the patch we were able to stent the right external iliac artery and through a separate puncture of the patch we performed atherectomy and drug- coated stenting of the entire right superficial femoral artery restoring blood flow to the right leg. He has done well complaining only up some incisional tenderness in the right groin. He was discharged home today on October 09 2022. He will be sent home on his usual medications to include aspirin 81 mg by mouth daily as well as Plavix, 75 mg daily. He will follow up with me in one week. At that time we will see him and plan intervention of the left leg superficial femoral artery occlusion. Patient Disposition: AGAINST MEDICAL ADVICE Condition: Stable Health Concerns: Post Hospitalization: new medications and changes needed to prevent readmission or further decline. Pt educated and given instructions on all concerns. Care Plan Goals: Problem: Pain/Alteration in Comfort Goal: Improve/ Resolve Pain; Achieve Pain Tolerance Instructions: Take pain medications as prescribed. Contact your primary care provider if your pain is unrelieved or worsens. Follow up with primary care provider as directed. Plan of Treatment: Continue with present treatment and follow up plan. Pt is to keep follow up appointment as instructed and take medications as ordered. Assessment: see hospital course Prescriptions: No Action Humulin R Regular U-100 Insuln 100 unit/mL solution See Rx Instructions .ROUTE .COMPLEX Qty: 30 0RF Dose Instruction: 1 (ONE) MILLILITER PER SLIDING SCALE. MAX DAILY DOSE: 12 UNIT 150-200/2U 201- 250/4U 251-300/6U 301-350/8 351-400/10U 401-450/14U.>450 CALL DOCOTR Rx Instructions: 1 (ONE) MILLILITER PER SLIDING SCALE. MAX DAILY DOSE: 12 UNIT 150-200/2U 201- 250/4U 251-300/6U 301-350/8 351-400/10U 401-450/14U.>450 CALL DOCOTR cyclobenzaprine 10 mg tablet 10 mg PO BID PRN (Reason: muscle spasm) Qty: 60 2RF furosemide 40 mg tablet 40 mg PO QDAY Qty: 30 3RF alprazolam 0.5 mg tablet 0.5 mg PO TID MDD 3 PRN (Reason: anxiety) 30 Days Qty: 90 0RF pantoprazole 40 mg tablet,delayed release (DR/EC) 40 mg PO QDAY Qty: 30 3RF metformin 1,000 mg tablet 1,000 mg PO BID 30 Days Qty: 60 3RF gabapentin 100 mg capsule 100 mg PO QDAY Qty: 30 3RF clopidogrel 75 mg tablet 75 mg PO QDAY Qty: 30 3RF ProAir RespiClick 90 mcg/actuation aerosol powdr breath activated 1 inh inhalation Q4-6H PRN (Reason: for wheezing) Qty: 1 3RF aspirin 81 mg tablet,delayed release (DR/EC) 81 mg PO QDAY Qty: 30 1RF Januvia 100 mg tablet 100 mg PO QDAY atorvastatin 40 mg tablet 40 mg PO HS lisinopril 10 mg tablet 10 mg PO DAILY Rx Instructions: pt states dr clemons told him to take 10 mg daily carvedilol 12.5 mg tablet 12.5 mg PO DAILY Rx Instructions: pt states dr Clemons order once daily Follow ups/Referrals Follow ups/Referrals: Roldan Clemons [Primary Care Provider] - (Follow up as needed.) Raphael Peraza [STAFF PHYSICIAN] - 1 WEEK Instructions Instructions: Angiogram, [id number], Atherosclerosis, Endovascular Therapy for Peripheral Vascular Disease, Care After, Femoral Site Care, Femoral Endarterectomy, Femorofemoral Bypass
== END 2022-10-09 07:30 | disposition left against medical advice (07) | DRG 254 ==
LOC: MED/SURG 15:23
PROVIDERS: ADMIT Surgery; ATTEND Surgery
DX: R06.02 Shortness of breath; E78.2 Mixed hyperlipidemia; E11.65 Type 2 diabetes mellitus with hyperglycemia; I70.223 Atherosclerosis of native arteries of extremities with rest pain, bilateral legs; I10 Essential (primary) hypertension; J44.9 Chronic obstructive pulmonary disease, unspecified; Z53.29 Procedure and treatment not carried out because of patient's decision for other reasons; Z72.0 Tobacco use; F41.1 Generalized anxiety disorder